=== PATIENT | female | born 1975 | race Caucasian/White ===

== ENCOUNTER 2021-08-17 14:19 | Emergency (ER) | payer OTHER, SELFPAY ==
[2021-08-17 14:32] VITALS: BP 137/89; PULSE 102; RESP 16; TEMP 36.6; O2SAT 99; BMI 25.0
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
[2021-08-17] MEDS: KETOROLAC 30 MG/ML VIAL IM (15:51)
[2021-08-17] MEDS: OXYCODONE/ACETAMINOPHEN 5/325 TABLET 1 TAB PO (15:52)
[2021-08-17 16:03] VITALS: BP 142/78; PULSE 83; RESP 20; O2SAT 98
== END 2021-08-17 16:08 | disposition home or self-care (01) ==
PROVIDERS: Emergency Provider Emergency Medicine
DX: S16.1XXA Strain of muscle, fascia and tendon at neck level, initial encounter (principal); S39.012A Strain of muscle, fascia and tendon of lower back, initial encounter; S80.02XA Contusion of left knee, initial encounter; V89.2XXA Person injured in unspecified motor-vehicle accident, traffic, initial encounter; M79.7 Fibromyalgia
CPT/HCPCS: 96372; 99283; J1885

== ENCOUNTER 2022-11-01 14:08 | Emergency (ER) | payer SELFPAY ==
[2022-11-01] VITALS (40 sets, daily range): BP systolic 119–145; BP diastolic 69–89; PULSE 71–103; RESP 12–26; TEMP 36.4; O2SAT 92–98; BMI 23.5
--- NOTE | 2022-11-01 14:17 | DI.RAD.S_ITS ---
PROCEDURE: XR CHEST 2V INDICATIONS: chest pain TECHNIQUE: 2 views of the chest were acquired. COMPARISON: [facility], CR, XR CHEST 1 VIEW, 08/21/2021, 21:58. [facility], CR, CHEST 2 VIEW, 10/29/2017, 22:58. [facility], CR, CHEST 2 VIEW, 11/06/2017, 17:57. FINDINGS: Surgical changes and devices: None. Lungs and pleura: Oval density seen in the periphery of the right lower lung zone likely represents a nipple shadow. However, this was not seen on prior studies. Lungs are otherwise clear. No pleural effusions or pneumothorax. Mediastinum: Mediastinal contours are normal. Heart size is normal. Bones and chest wall: No suspicious bony abnormalities. Soft tissues appear unremarkable. IMPRESSION: Oval density projecting in the periphery of the right lower lung zone likely representing right nipple shadow. However, this cannot be confirmed with prior radiographs. Consider repeat imaging with nipple markers to confirm. Dictated by: Kevin Johnson M.D. on 11/01/2022 at 14:55 Approved by: Kevin Johnson M.D. on 11/01/2022 at 14:57
[2022-11-01 14:55] LABS: Add Manual Diff / Slide Review NO; Basophils Absolute Auto 100 /uL (0-100); Eosinophils Absolute Auto 200 /uL (0-450); Eosinophils Percent Auto 2.8 % (2-4); Hematocrit 42.4 % (36-46); Hemoglobin 14.9 g/dL (12.0-16.0); Lymphocytes Absolute Auto 3100 /uL (1100-4500); Lymphocytes Percent Auto 44.9 % (25-40); Mean Corpuscular HGB Conc 35.1 % (30-36); Mean Corpuscular Hemoglobin 33.1 PG (26-34); Mean Corpuscular Volume 94.4 fL (80-100); Monocytes Absolute Auto 500 /uL (0-900); Monocytes Percent Auto 6.7 % (3-14); Neutrophils Absolute Auto 3100 /uL (1500-7000); Neutrophils Percent Auto 44.6 % (50-75); Platelet Count 328 X10^3/uL (150-400); Red Blood Cell Count 4.49 X10^6/uL (4.0-5.2); Red Cell Distribution Width 12.5 % (11.6-14.8); White Blood Cell Count 6.9 X10^3/uL (4.5-11.0)
[2022-11-01 15:47] LABS: Influenza A - CEPHEID Flu A NEGATIVE (NEGATIVE); Influenza B - CEPHEID Flu B NEGATIVE (NEGATIVE); Respiratory Syncytial Virus Negative (Negative)
[2022-11-01 15:48] LABS: COVID-19 CEPHEID 4-PLEX PCR Negative (Negative)
[2022-11-01 16:27] LABS: Alanine Aminotransferase 14 IU/L (<35); Albumin Globulin Ratio 1.1 (1.0-2.8); Alkaline Phosphatase 82 U/L (38-126); Aspartate Aminotransferase 19 IU/L (14-36); BUN Creatinine Ratio 12.7 (6-22); Bilirubin Total 0.4 mg/dL (0.2-1.3); Blood Urea Nitrogen 7 mg/dL (7-17); Carbon Dioxide 26 mmol/L (22-32); Chloride 103 mmol/L (98-107); Creatine Kinase 64 U/L (30-135); Estimated Glomerular Filt Rate > 60 mL/min (>60); Globulin 3.7 g/dL (1.7-4.1); Glucose 81 mg/dL (70-100); HEMOLYSIS < 15 (0-50); Lipase 59 U/L (23-300); Magnesium 1.9 mg/dL (1.6-2.3); PTT Partial Thromboplastin Tim 36 SECONDS (26-36); Potassium 3.9 mmol/L (3.4-5.1); Prothrombin Time 11.2 SECONDS (10.1-12.7); Sodium 136 mmol/L (137-145); Total Protein 7.7 g/dL (6.3-8.2)
[2022-11-01 16:38] LABS: Troponin I < 0.012 ng/mL (0.01-0.034)
--- NOTE | 2022-11-01 17:30 | ED_ITS ---
HPI - Chest Pain <Christopher Mora PA-C - Last Filed: 11/01/22 20:07> General Chief Complaint: Chest Pain Stated Complaint: Headache, Chest pain Time Seen by Provider: 11/01/22 16:56 Source: patient Mode of arrival: Ambulatory Limitations: no limitations History of Present Illness HPI narrative: This is a 47-year-old female presents emergency department due complaints of a ?dehydration headache?. She also reports some chest pain as well as achy back pain, feeling foggy?. She describes the headache as constant and feels similar to previous dehydration headache she has had an a past she states she is very familiar with this as she has a tortuous colon causing her to become routinely dehydrated. She states the states the pains localized to the left chest as well. Denies any nausea, vomiting, shortness of breath, or any other concerning signs or symptoms. Related Data Home Medications Medication Instructions Recorded Confirmed cetirizine 10 mg tablet ##0 03/26/17 promethazine 12.5 mg tablet 12.5 mg PO Q6HP PRN ##0 03/26/17 ranitidine HCl 75 mg tablet ##0 03/26/17 Previous Rx's Medication Instructions Recorded dicyclomine 10 mg capsule 10 mg PO BID #60 caps 03/26/17 ibuprofen 600 mg tablet 600 mg PO Q6HP PRN #30 tabs 03/26/17 linaclotide 72 mcg capsule 72 mcg PO Q DAY #30 caps 03/26/17 (Linzess) ondansetron 4 mg disintegrating 4 mg sublingual Q6HP PRN ##20 04/28/17 tablet (Zofran ODT) oxycodone-acetaminophen 5 mg-325 1 tab PO Q4HP PRN #5 tabs 04/28/17 mg tablet (Percocet) promethazine 6.25 mg-codeine 10 5 - 10 ml PO Q4HP PRN #120 mL 10/29/17 mg/5 mL syrup oxycodone-acetaminophen 5 mg-325 1 tab PO Q6H PRN pain #20 tabs 08/17/21 mg tablet tizanidine 4 mg capsule (Zanaflex) 4 mg PO Q8H PRN muscle spasticity 08/17/21 #14 caps Allergies Allergy/AdvReac Type Severity Reaction Status Date / Time Penicillins [PENICILLINS] Allergy Intermediate ITCHY Verified 10/14/21 15:51 Review of Systems <Christopher Mora PA-C - Last Filed: 11/01/22 20:07> Review of Systems Narrative: GENERAL: Denies chills, fatigue, malaise, fever, sweats. HEENT: Reports headache, Denies sinus pain, ear pain, sore throat, difficulty swallowing, dizziness. RESPIRATORY: Denies dyspnea, cough, wheezing, hemoptysis, sputum. CARDIOVASCULAR: Reports chest pain, denies palpitations, orthopnea, edema, GASTROINTESTINAL: Denies nausea, vomiting, abdominal pain, diarrhea, constipation, melena. : Denies dysuria, frequency, incontinence, hematuria, urinary retention. MUSCULOSKELETAL: denies weakness, joint pain, or bony pain SKIN: Denies rash, skin lesions, or other NEUROLOGIC: Denies weakness, headache, numbness, change in speech, confusion, seizures, incoordination. PSYCHIATRIC: No concerning psychosocial issues. 12 point review of systems is negative except for those stated above Patient History <Christopher Mora PA-C - Last Filed: 11/01/22 20:07> Medical History Fibromyalgia History of gastric ulcer Social History Smoking Status: Current every day smoker Smoking Status: Current every day smoker alcohol intake frequency: 0-2 drinks per day Substance Use Type: does not use Exam <Christopher Mora PA-C - Last Filed: 11/01/22 20:07> Narrative Exam Narrative: GENERAL: Well-developed patient, in mild distress. HEAD: Atraumatic. Normocephalic. EYES: Pupils equal round and reactive. Extraocular motions intact. No scleral icterus. No injection or drainage. ENT: Nose without bleeding, purulent drainage. Throat without erythema, tonsilla r hypertrophy or exudate. Airway patent. NECK: Trachea midline. Non tender CARDIOVASCULAR: Regular rate and rhythm without murmurs, gallops, or rubs. RESPIRATORY: Clear to auscultation. Breath sounds equal bilaterally. No wheezes, rales, or rhonchi. GASTROINTESTINAL: Abdomen soft, non-tender, nondistended. EXTREMITIES: No edema or joint tenderness. BACK: Nontender without deformity or crepitance. No flank tenderness. NEURO: AOx3. SKIN: No rash or erythema of visible areas Initial Vital Signs Initial Vital Signs: Vital Signs Temperature 97.5 F L 11/01/22 14:11 Pulse Rate 103 H 11/01/22 14:11 Respiratory Rate 18 11/01/22 14:11 Blood Pressure 145/72 H 11/01/22 14:11 Pulse Oximetry 98 11/01/22 14:11 Oxygen Delivery Method 11/01/22 14:11 <Jesi Baker DO - Last Filed: 11/05/22 03:02> Initial Vital Signs Initial Vital Signs: Vital Signs Temperature 97.5 F L 11/01/22 14:11 Pulse Rate 103 H 11/01/22 14:11 Respiratory Rate 18 11/01/22 14:11 Blood Pressure 145/72 H 11/01/22 14:11 Pulse Oximetry 98 11/01/22 14:11 Oxygen Delivery Method 11/01/22 14:11 Course <Christopher Mora PA-C - Last Filed: 11/01/22 20:07> Orders Ordered: Discontinued Medications Aspirin (Aspirin 81 Mg Chew Tab) 324 mg PO NOW ONE Stop: 11/01/22 14:18 Last Admin: 11/01/22 18:39 Dose: Not Given Documented By: VITO Sodium Chloride (Normal Saline 0.9%) 1,000 mls @ 1,000 mls/hr IV BOLUS ONE Stop: 11/01/22 18:47 Last Infusion: 11/01/22 20:07 Dose: 0 mls/hr Documented By: Admin: 11/01/22 17:53 Dose: 1,000 mls/hr Documented By: VITO Vital Signs Vital signs: Vital Signs - 8 hr 11/01/22 14:11 11/01/22 16:58 11/01/22 16:58 Temperature 97.5 F L Pulse Rate 103 H 85 Respiratory Rate 18 24 Blood Pressure 145/72 H 130/85 Pulse Oximetry 98 96 Oxygen Delivery Method Room Air 11/01/22 17:00 11/01/22 17:00 11/01/22 17:05 Temperature Pulse Rate 86 79 Respiratory Rate 19 22 Blood Pressure 130/84 Pulse Oximetry 95 95 Oxygen Delivery Method 11/01/22 17:05 11/01/22 17:10 11/01/22 17:10 Temperature Pulse Rate 78 Respiratory Rate 17 Blood Pressure 132/82 127/85 Pulse Oximetry 94 Oxygen Delivery Method 11/01/22 17:15 11/01/22 17:15 11/01/22 17:20 Temperature Pulse Rate 80 Respiratory Rate 24 Blood Pressure 135/88 137/89 Pulse Oximetry 95 Oxygen Delivery Method 11/01/22 17:20 11/01/22 17:25 11/01/22 17:25 Temperature Pulse Rate 81 75 Respiratory Rate 25 H 21 Blood Pressure 134/86 Pulse Oximetry 95 97 Oxygen Delivery Method 11/01/22 17:30 11/01/22 17:30 11/01/22 17:35 Temperature Pulse Rate 79 Respiratory Rate 24 Blood Pressure 140/84 131/81 Pulse Oximetry 96 Oxygen Delivery Method 11/01/22 17:35 11/01/22 17:40 11/01/22 17:40 Temperature Pulse Rate 84 76 Respiratory Rate 26 H 20 Blood Pressure 129/81 Pulse Oximetry 95 95 Oxygen Delivery Method 11/01/22 17:45 11/01/22 17:45 11/01/22 17:50 Temperature Pulse Rate 74 78 Respiratory Rate 19 21 Blood Pressure 127/81 Pulse Oximetry 94 94 Oxygen Delivery Method 11/01/22 17:50 11/01/22 17:55 11/01/22 17:55 Temperature Pulse Rate 77 Respiratory Rate 18 Blood Pressure 129/81 127/78 Pulse Oximetry 94 Oxygen Delivery Method 11/01/22 18:00 11/01/22 18:00 11/01/22 18:05 Temperature Pulse Rate 87 86 Respiratory Rate 23 Blood Pressure 128/85 Pulse Oximetry 94 93 Oxygen Delivery Method 11/01/22 18:05 11/01/22 18:10 11/01/22 18:10 Temperature Pulse Rate 84 Respiratory Rate Blood Pressure 133/85 133/81 Pulse Oximetry 94 Oxygen Delivery Method 11/01/22 18:15 11/01/22 18:15 11/01/22 18:20 Temperature Pulse Rate 83 Respiratory Rate 23 Blood Pressure 129/84 124/81 Pulse Oximetry 95 Oxygen Delivery Method 11/01/22 18:20 11/01/22 18:25 11/01/22 18:25 Temperature Pulse Rate 81 80 Respiratory Rate 16 15 Blood Pressure 126/84 Pulse Oximetry 95 95 Oxygen Delivery Method 11/01/22 18:30 11/01/22 18:30 11/01/22 18:35 Temperature Pulse Rate 80 Respiratory Rate Blood Pressure 133/82 135/74 Pulse Oximetry 96 Oxygen Delivery Method 11/01/22 18:35 11/01/22 18:40 11/01/22 18:40 Temperature Pulse Rate 78 75 Respiratory Rate 15 16 Blood Pressure 135/69 Pulse Oximetry 96 95 Oxygen Delivery Method 11/01/22 18:45 11/01/22 18:45 11/01/22 18:50 Temperature Pulse Rate 80 75 Respiratory Rate Blood Pressure 133/76 Pulse Oximetry 95 95 Oxygen Delivery Method 11/01/22 18:50 11/01/22 18:55 11/01/22 18:55 Temperature Pulse Rate 83 Respiratory Rate Blood Pressure 125/77 129/80 Pulse Oximetry 94 Oxygen Delivery Method 11/01/22 19:00 11/01/22 19:00 Temperature Pulse Rate 75 Respiratory Rate 24 Blood Pressure 119/84 Pulse Oximetry 95 Oxygen Delivery Method <Jesi Baker, - Last Filed: 11/05/22 03:02> Orders Ordered: Discontinued Medications Aspirin (Aspirin 81 Mg Chew Tab) 324 mg PO NOW ONE Stop: 11/01/22 14:18 Last Admin: 11/01/22 18:39 Dose: Not Given Documented By: VITO Sodium Chloride (Normal Saline 0.9%) 1,000 mls @ 1,000 mls/hr IV BOLUS ONE Stop: 11/01/22 18:47 Last Infusion: 11/01/22 20:07 Dose: 0 mls/hr Documented By: Admin: 11/01/22 17:53 Dose: 1,000 mls/hr Documented By: VITO Vital Signs Vital signs: Vital Signs - 8 hr 11/01/22 14:11 11/01/22 16:58 11/01/22 16:58 Temperature 97.5 F L Pulse Rate 103 H 85 Respiratory Rate 18 24 Blood Pressure 145/72 H 130/85 Pulse Oximetry 98 96 Oxygen Delivery Method Room Air 11/01/22 17:00 11/01/22 17:00 11/01/22 17:05 Temperature Pulse Rate 86 79 Respiratory Rate 19 22 Blood Pressure 130/84 Pulse Oximetry 95 95 Oxygen Delivery Method 11/01/22 17:05 11/01/22 17:10 11/01/22 17:10 Temperature Pulse Rate 78 Respiratory Rate 17 Blood Pressure 132/82 127/85 Pulse Oximetry 94 Oxygen Delivery Method 11/01/22 17:15 11/01/22 17:15 11/01/22 17:20 Temperature Pulse Rate 80 Respiratory Rate 24 Blood Pressure 135/88 137/89 Pulse Oximetry 95 Oxygen Delivery Method 11/01/22 17:20 11/01/22 17:25 11/01/22 17:25 Temperature Pulse Rate 81 75 Respiratory Rate 25 H 21 Blood Pressure 134/86 Pulse Oximetry 95 97 Oxygen Delivery Method 11/01/22 17:30 11/01/22 17:30 11/01/22 17:35 Temperature Pulse Rate 79 Respiratory Rate 24 Blood Pressure 140/84 131/81 Pulse Oximetry 96 Oxygen Delivery Method 11/01/22 17:35 11/01/22 17:40 11/01/22 17:40 Temperature Pulse Rate 84 76 Respiratory Rate 26 H 20 Blood Pressure 129/81 Pulse Oximetry 95 95 Oxygen Delivery Method 11/01/22 17:45 11/01/22 17:45 11/01/22 17:50 Temperature Pulse Rate 74 78 Respiratory Rate 19 21 Blood Pressure 127/81 Pulse Oximetry 94 94 Oxygen Delivery Method 11/01/22 17:50 11/01/22 17:55 11/01/22 17:55 Temperature Pulse Rate 77 Respiratory Rate 18 Blood Pressure 129/81 127/78 Pulse Oximetry 94 Oxygen Delivery Method 11/01/22 18:00 11/01/22 18:00 11/01/22 18:05 Temperature Pulse Rate 87 86 Respiratory Rate 23 Blood Pressure 128/85 Pulse Oximetry 94 93 Oxygen Delivery Method 11/01/22 18:05 11/01/22 18:10 11/01/22 18:10 Temperature Pulse Rate 84 Respiratory Rate Blood Pressure 133/85 133/81 Pulse Oximetry 94 Oxygen Delivery Method 11/01/22 18:15 11/01/22 18:15 11/01/22 18:20 Temperature Pulse Rate 83 Respiratory Rate 23 Blood Pressure 129/84 124/81 Pulse Oximetry 95 Oxygen Delivery Method 11/01/22 18:20 11/01/22 18:25 11/01/22 18:25 Temperature Pulse Rate 81 80 Respiratory Rate 16 15 Blood Pressure 126/84 Pulse Oximetry 95 95 Oxygen Delivery Method 11/01/22 18:30 11/01/22 18:30 11/01/22 18:35 Temperature Pulse Rate 80 Respiratory Rate Blood Pressure 133/82 135/74 Pulse Oximetry 96 Oxygen Delivery Method 11/01/22 18:35 11/01/22 18:40 11/01/22 18:40 Temperature Pulse Rate 78 75 Respiratory Rate 15 16 Blood Pressure 135/69 Pulse Oximetry 96 95 Oxygen Delivery Method 11/01/22 18:45 11/01/22 18:45 11/01/22 18:50 Temperature Pulse Rate 80 75 Respiratory Rate Blood Pressure 133/76 Pulse Oximetry 95 95 Oxygen Delivery Method 11/01/22 18:50 11/01/22 18:55 11/01/22 18:55 Temperature Pulse Rate 83 Respiratory Rate Blood Pressure 125/77 129/80 Pulse Oximetry 94 Oxygen Delivery Method 11/01/22 19:00 11/01/22 19:00 Temperature Pulse Rate 75 Respiratory Rate 24 Blood Pressure 119/84 Pulse Oximetry 95 Oxygen Delivery Method MDM - Chest Pain <Christopher Mora PA-C - Last Filed: 11/01/22 20:07> Lab Data Result diagrams: 11/01/22 14:21 11/01/22 16:00 Labs: Lab Results 11/01/22 11/01/22 11/01/22 Range/Units 14:21 14:21 16:00 WBC 6.9 (4.5-11.0) X10^3/uL RBC 4.49 (4.0-5.2) X10^6/uL Hgb 14.9 (12.0-16.0) g/dL Hct 42.4 (36-46) % MCV 94.4 (80-100) fL MCH 33.1 (26-34) PG MCHC 35.1 (30-36) % RDW 12.5 (11.6-14.8) % Plt Count 328 (150-400) X10^3/uL Neut % (Auto) 44.6 L (50-75) % Lymph % (Auto) 44.9 H (25-40) % [place] % (Auto) 6.7 (3-14) % Eos % (Auto) 2.8 (2-4) % Baso % (Auto) 1.0 (0-2) % Neut # (Auto) 3100 (6611-7501) /uL Lymph # (Auto) 3100 (8035-7082) /uL [place] # (Auto) 500 (0-900) /uL Eos # (Auto) 200 (0-450) /uL Baso # (Auto) 100 (0-100) /uL PT 11.2 (10.1-12.7) SECONDS INR 1.0 (0.9-1.3) APTT 36 (26-36) SECONDS Sodium (137-145) mmol/L Potassium (3.4-5.1) mmol/L Chloride (98-107) mmol/L Carbon Dioxide (22-32) mmol/L BUN (7-17) mg/dL Creatinine (0.52-1.04) mg/dL Estimated GFR (>60) mL/min BUN/Creatinine Ratio (6-22) Glucose (70-100) mg/dL Calcium (8.4-10.2) mg/dL Magnesium (1.6-2.3) mg/dL Total Bilirubin (0.2-1.3) mg/dL AST (14-36) IU/L ALT (<35) IU/L Alkaline Phosphatase (38-126) U/L Total Creatine Kinase (30-135) U/L CK-MB (CK-2) CK-MB (CK-2) Rel Index Troponin I (0.01-0.034) ng/mL Total Protein (6.3-8.2) g/dL Albumin (3.5-5.0) g/dL Globulin (1.7-4.1) g/dL Albumin/Globulin Ratio (1.0-2.8) Lipase (23-300) U/L SARS-CoV-2 (PCR) Negative (Negative) Influenza A (RT-PCR) Flu a negative (NEGATIVE) Influenza B (RT-PCR) Flu b negative (NEGATIVE) RSV (PCR) Negative (Negative) 11/01/22 11/01/22 Range/Units 16:00 18:56 WBC (4.5-11.0) X10^3/uL RBC (4.0-5.2) X10^6/uL Hgb (12.0-16.0) g/dL Hct (36-46) % MCV (80-100) fL MCH (26-34) PG MCHC (30-36) % RDW (11.6-14.8) % Plt Count (150-400) X10^3/uL Neut % (Auto) (50-75) % Lymph % (Auto) (25-40) % [place] % (Auto) (3-14) % Eos % (Auto) (2-4) % Baso % (Auto) (0-2) % Neut # (Auto) (3015-7001) /uL Lymph # (Auto) (2199-4870) /uL [place] # (Auto) (0-900) /uL Eos # (Auto) (0-450) /uL Baso # (Auto) (0-100) /uL PT (10.1-12.7) SECONDS INR (0.9-1.3) APTT (26-36) SECONDS Sodium 136 L (137-145) mmol/L Potassium 3.9 (3.4-5.1) mmol/L Chloride 103 (98-107) mmol/L Carbon Dioxide 26 (22-32) mmol/L BUN 7 (7-17) mg/dL Creatinine 0.55 (0.52-1.04) mg/dL Estimated GFR > 60 (>60) mL/min BUN/Creatinine Ratio 12.7 (6-22) Glucose 81 (70-100) mg/dL Calcium 9.0 (8.4-10.2) mg/dL Magnesium 1.9 (1.6-2.3) mg/dL Total Bilirubin 0.4 (0.2-1.3) mg/dL AST 19 (14-36) IU/L ALT 14 (<35) IU/L Alkaline Phosphatase 82 (38-126) U/L Total Creatine Kinase 64 (30-135) U/L CK-MB (CK-2) TNP CK-MB (CK-2) Rel Index TNP Troponin I < 0.012 < 0.012 (0.01-0.034) ng/mL Total Protein 7.7 (6.3-8.2) g/dL Albumin 4.0 (3.5-5.0) g/dL Globulin 3.7 (1.7-4.1) g/dL Albumin/Globulin Ratio 1.1 (1.0-2.8) Lipase 59 (23-300) U/L SARS-CoV-2 (PCR) (Negative) Influenza A (RT-PCR) (NEGATIVE) Influenza B (RT-PCR) (NEGATIVE) RSV (PCR) (Negative) Point of Care Testing Test Results Negative Urine Dip Bedside Urine Glucose Negative Bedside Urine Bilirubin - Negative Bedside Urine Ketone - Negative Urine Specific [place] 1.010 Bedside Urine Occult Blood - Negative Bedside Urine pH 8 Bedside Urine Protein - Negative Bedside Urine Urobilinogen - Negative Bedside Urine Nitrite - Negative Bedside Urine Leukocytes - Negative Esterase Imaging Data Chest x-ray: Radiologist's Impression: [address] [address] XRay Report Signed Patient: Jolanta Christianson MR#: [id number] : 1975 Acct:[id number] Age/Sex: 47 / F Date of Service: 11/01/22 Loc: ED Accession Number: [id number] ?? Procedure: XR chest 2V Ordering Provider: Jesi Baker D.O. PROCEDURE:? XR CHEST 2V ? INDICATIONS:? chest pain ? TECHNIQUE:? 2 views of the chest were acquired.? ? COMPARISON:? [facility], CR, XR CHEST 1 VIEW, 08/21/2021, 21:58.? [facility], CR, CHEST 2 VIEW, 10/29/2017, 22:58.? [facility], CR, CHEST 2 VIEW, 11/06/2017, 17:57. ? FINDINGS:? ? Surgical changes and devices:? None.? ? Lungs and pleura:? Oval density seen in the periphery of the right lower lung zone likely represents a nipple shadow.? However, this was not seen on prior studies.? Lungs are otherwise clear.? No pleural effusions or pneumothorax.? ? Mediastinum:? Mediastinal contours are normal.? Heart size is normal.? ? Bones and chest wall:? No suspicious bony abnormalities.? Soft tissues appear unremarkable.? ? IMPRESSION:? Oval density projecting in the periphery of the right lower lung zone likely representing right nipple shadow.? However, this cannot be confirmed with prior radiographs.? Consider repeat imaging with nipple markers to confirm. ? ? Dictated by: Kevin Johnson M.D. on 11/01/2022 at 14:55 ? ? Approved by: Kevin Johnson M.D. on 11/01/2022 at 14:57 ? MDM Narrative Medical decision making narrative: This is a 47-year-old female presents to the emergency department due to reports of a headache which she suspected secondary dehydration. She is also complaining of chest pain. Patient's 2 troponins were negative as well as a unremarkable EKG. Low concern for ACS at this time. Patient was given a L of IV fluids as well as recommendations to continue oral hydration at home. All lab work unremarkable. Patient has low-grade low risk factors for any kind of ACS as well. Patient had a completely normal neuro exam and low concern for any kind of neuro deficits or CVA. <Jesi Baker, DO - Last Filed: 11/05/22 03:02> Lab Data Labs: Lab Results 11/01/22 11/01/22 11/01/22 Range/Units 14:21 14:21 16:00 WBC 6.9 (4.5-11.0) X10^3/uL RBC 4.49 (4.0-5.2) X10^6/uL Hgb 14.9 (12.0-16.0) g/dL Hct 42.4 (36-46) % MCV 94.4 (80-100) fL MCH 33.1 (26-34) PG MCHC 35.1 (30-36) % RDW 12.5 (11.6-14.8) % Plt Count 328 (150-400) X10^3/uL Neut % (Auto) 44.6 L (50-75) % Lymph % (Auto) 44.9 H (25-40) % [place] % (Auto) 6.7 (3-14) % Eos % (Auto) 2.8 (2-4) % Baso % (Auto) 1.0 (0-2) % Neut # (Auto) 3100 (3343-0995) /uL Lymph # (Auto) 3100 (4839-0617) /uL [place] # (Auto) 500 (0-900) /uL Eos # (Auto) 200 (0-450) /uL Baso # (Auto) 100 (0-100) /uL PT 11.2 (10.1-12.7) SECONDS INR 1.0 (0.9-1.3) APTT 36 (26-36) SECONDS Sodium (137-145) mmol/L Potassium (3.4-5.1) mmol/L Chloride (98-107) mmol/L Carbon Dioxide (22-32) mmol/L BUN (7-17) mg/dL Creatinine (0.52-1.04) mg/dL Estimated GFR (>60) mL/min BUN/Creatinine Ratio (6-22) Glucose (70-100) mg/dL Calcium (8.4-10.2) mg/dL Magnesium (1.6-2.3) mg/dL Total Bilirubin (0.2-1.3) mg/dL AST (14-36) IU/L ALT (<35) IU/L Alkaline Phosphatase (38-126) U/L Total Creatine Kinase (30-135) U/L CK-MB (CK-2) CK-MB (CK-2) Rel Index Troponin I (0.01-0.034) ng/mL Total Protein (6.3-8.2) g/dL Albumin (3.5-5.0) g/dL Globulin (1.7-4.1) g/dL Albumin/Globulin Ratio (1.0-2.8) Lipase (23-300) U/L SARS-CoV-2 (PCR) Negative (Negative) Influenza A (RT-PCR) Flu a negative (NEGATIVE) Influenza B (RT-PCR) Flu b negative (NEGATIVE) RSV (PCR) Negative (Negative) 11/01/22 11/01/22 Range/Units 16:00 18:56 WBC (4.5-11.0) X10^3/uL RBC (4.0-5.2) X10^6/uL Hgb (12.0-16.0) g/dL Hct (36-46) % MCV (80-100) fL MCH (26-34) PG MCHC (30-36) % RDW (11.6-14.8) % Plt Count (150-400) X10^3/uL Neut % (Auto) (50-75) % Lymph % (Auto) (25-40) % [place] % (Auto) (3-14) % Eos % (Auto) (2-4) % Baso % (Auto) (0-2) % Neut # (Auto) (2712-9135) /uL Lymph # (Auto) (9960-8981) /uL [place] # (Auto) (0-900) /uL Eos # (Auto) (0-450) /uL Baso # (Auto) (0-100) /uL PT (10.1-12.7) SECONDS INR (0.9-1.3) APTT (26-36) SECONDS Sodium 136 L (137-145) mmol/L Potassium 3.9 (3.4-5.1) mmol/L Chloride 103 (98-107) mmol/L Carbon Dioxide 26 (22-32) mmol/L BUN 7 (7-17) mg/dL Creatinine 0.55 (0.52-1.04) mg/dL Estimated GFR > 60 (>60) mL/min BUN/Creatinine Ratio 12.7 (6-22) Glucose 81 (70-100) mg/dL Calcium 9.0 (8.4-10.2) mg/dL Magnesium 1.9 (1.6-2.3) mg/dL Total Bilirubin 0.4 (0.2-1.3) mg/dL AST 19 (14-36) IU/L ALT 14 (<35) IU/L Alkaline Phosphatase 82 (38-126) U/L Total Creatine Kinase 64 (30-135) U/L CK-MB (CK-2) TNP CK-MB (CK-2) Rel Index TNP Troponin I < 0.012 < 0.012 (0.01-0.034) ng/mL Total Protein 7.7 (6.3-8.2) g/dL Albumin 4.0 (3.5-5.0) g/dL Globulin 3.7 (1.7-4.1) g/dL Albumin/Globulin Ratio 1.1 (1.0-2.8) Lipase 59 (23-300) U/L SARS-CoV-2 (PCR) (Negative) Influenza A (RT-PCR) (NEGATIVE) Influenza B (RT-PCR) (NEGATIVE) RSV (PCR) (Negative) Point of Care Testing Test Results Negative Urine Dip Bedside Urine Glucose Negative Bedside Urine Bilirubin - Negative Bedside Urine Ketone - Negative Urine Specific [place] 1.010 Bedside Urine Occult Blood - Negative Bedside Urine pH 8 Bedside Urine Protein - Negative Bedside Urine Urobilinogen - Negative Bedside Urine Nitrite - Negative Bedside Urine Leukocytes - Negative Esterase Discharge Plan Departure Patient Disposition: Home Clinical Impression: Acute dehydration Activity Restrictions/Additional Instructions: Thank you for coming to the [facility] Emergency Department today. As we discussed this suspect your symptoms are due to your head dehydration. The L of fluid should help. Please continue drinking plenty of fluids with electrolytes such as Gatorade to help with your symptoms. Your lab work was all essentially unremarkable. The cardiac workup showed no evidence of any kind a heart attack. Please follow-up with the primary care provider for further workup if symptoms continue. I hope you feel better soon. Prescriptions: No Action ibuprofen 600 MG tablet 600 mg PO Q6HP PRNQty: 30 0RF dicyclomine 10 MG capsule 10 mg PO BID Qty: 60 0RF cetirizine 10 MG tablet Qty: 0 promethazine 12.5 MG tablet 12.5 mg PO Q6HP PRNQty: 0 ranitidine HCl 75 MG tablet Qty: 0 linaclotide [Linzess] 72 MCG capsule 72 mcg PO Q DAY Qty: 30 0RF oxycodone-acetaminophen [Percocet] 5 MG/325 MG tablet 1 tab PO Q4HP PRNQty: 5 0RF ondansetron [Zofran ODT] 4 MG tablet,disintegrating 4 mg Sublingual Q6HP PRNQty: 20 0RF promethazine-codeine 6.25 MG/10 MG syrup 5 - 10 ml PO Q4HP PRNQty: 120 0RF oxycodone-acetaminophen 5-325 mg tablet 1 tab PO Q6H PRN (Reason: pain) Qty: 20 0RF tizanidine [Zanaflex] 4 mg capsule 4 mg PO Q8H PRN (Reason: muscle spasticity) Qty: 14 0RF Stand Alone Forms: Patient Portal/API <Jesi Baker DO - Last Filed: 11/05/22 03:02> Cosign ED Attending Nan Attestation: I was immediately available in the department for consultation. Documentation has been reviewed.
[2022-11-01] MEDS: SODIUM CHLORIDE 0.9% 1,000 ML 1000 ML IV (17:53)
[2022-11-01 19:27] LABS: Troponin I < 0.012 ng/mL (0.01-0.034)
== END 2022-11-01 20:08 | disposition home or self-care (01) ==
PROVIDERS: Emergency Medicine; Emergency Provider Physician Assistant Medical
DX: E86.0 Dehydration (principal); R51.9 Headache, unspecified; Z20.822 Contact with and (suspected) exposure to COVID-19
CPT/HCPCS: 0241U; 36415; 71046; 80053; 81003; 81025; 82550; 83690; 83735; 84484; 85025; 85610; 85730; 93005; 96360; 96361; 99284